=== PATIENT | male | born 1980 | race Two or more races ===

== ENCOUNTER 2020-06-19 12:47 | Emergency (ER) | payer SELFPAY ==
[~2020-06-19] VITALS: Ht 162.6 cm; Wt 102.1 kg
--- NOTE | 2020-06-19 12:55 | NUR ---
INSTRUCTED THE PT TO WASH THE UE SCRATCHES WITH SOAP AND RUNNING WATER. CLEANSED THE SUPERFICIAL ABRASION ON BLE WITH NS.
[2020-06-19] MEDS ORDERED: TDAP DIPH,PERTUSS,TET VAC/PF 0.5 ML DISP.SYRIN IM ONE ×2 (13:00→13:09)
[2020-06-19] MEDS ORDERED: KETOROLAC TROMETHAMINE 60 MG INJ IM ONE ×2 (13:15→13:19)
[2020-06-19] MEDS ORDERED: IBUPROFEN 600 MG TABLET PO ONE (13:15)
[2020-06-19] MEDS ORDERED: IBUPROFEN 600 MG TABLET ONE (13:16)
--- NOTE | 2020-06-19 13:39 | NUR ---
Patient discharged to home in stable condition. Written and verbal after care instructions given. Patient verbalizes understanding of instructions. Stressed follow up or return to ER for worsening s/s.PT WALKS IN STEADY GAIT.
== END 2020-06-19 13:41 | disposition home or self-care (01) ==
LOC: ER 12:47
DX: S90.572A Other superficial bite of ankle, left ankle, initial encounter (principal); W54.0XXA Bitten by dog, initial encounter; Y93.89 Activity, other specified; Y92.89 Other specified places as the place of occurrence of the external cause; M53.3 Sacrococcygeal disorders, not elsewhere classified; W03.XXXA Other fall on same level due to collision with another person, initial encounter
CPT/HCPCS: 72220; 90471; 90715; 96372; 99283; J1885; A4663